=== PATIENT | female | born 2000 | race Caucasian/White ===

== ENCOUNTER → 2024-10-08 08:58 | Outpatient (REF) | payer OTHER, SELFPAY | LOC: HWRCS 08:58 | PROVIDERS: ATTENDING PHYSICIAN Nurse Practitioner Adult Health | DX: R55 Syncope and collapse (principal); R42 Dizziness and giddiness; R11.0 Nausea | CPT/HCPCS: 93306 ==

== ENCOUNTER → 2024-10-13 13:23 | Outpatient (REF) | payer OTHER, SELFPAY | LOC: RCS 13:23 | PROVIDERS: ATTENDING PHYSICIAN Nurse Practitioner Adult Health | DX: R55 Syncope and collapse (principal); R42 Dizziness and giddiness; R11.0 Nausea | CPT/HCPCS: 93225; 93226 ==

== ENCOUNTER → 2024-12-08 15:08 | Outpatient (REF) | payer OTHER, SELFPAY | LOC: RCS 15:08 | PROVIDERS: ATTENDING PHYSICIAN Student in an Organized Health Care Education/Training Program; FAMILY PHYSICIAN Internal Medicine | DX: R06.02 Shortness of breath (principal) | CPT/HCPCS: 93017 ==